=== PATIENT | female | born 1965 | race Caucasian/White ===

== ENCOUNTER 2017-03-09 15:18 | Emergency (ER) | payer OTHER ==
--- NOTE | 2017-03-09 15:25 | PDOC ---
History of Present Illness - General History Source: Patient Exam Limitations: No Limitations - History of Present Illness Initial Comments: 03/09/17 16:14 Patient is a 51 year old female with a significant past medical history of who presents to the ED with complaints of Headache beginning this week. Patient reports head pressure starting this week and increasing in intensity over time. She reports intermittent episodes of blurred vision secondary to head pressure. She states constant thirst for the last 2 days. She reports being unable to fall asleep due to head pressure. Patient reports episodes of exhaustion and weakness secondary to head pressure. She reports visiting the ED weeks ago for anxiety. Citlaly Chest pain, SOB. Denies fever, vomiting. Denies any other symptoms. Allergies Clarithromycin (From Biaxin), Vertisol. Social history : No smoking. No alcohol. No illicit drugs. Surgical history: No surgical history. PMD: None <Pierce Morse - Last Filed: 03/09/17 16:14> <Destinee James - Last Filed: 03/09/17 16:54> - General Chief Complaint: Headache Stated Complaint: weak,headache Time Seen by Provider: 03/09/17 15:24 Past History <Pierce Morse - Last Filed: 03/09/17 16:14> <Destinee James - Last Filed: 03/09/17 16:54> - Past Medical History Allergies/Adverse Reactions: Allergies Allergy/AdvReac Type Severity Reaction Status Date / Time clarithromycin [From Biaxin] Allergy Verified 03/09/17 15:21 vertisol Allergy Uncoded 03/09/17 15:36 Home Medications: Ambulatory Orders NK [No Known Home Medication] 03/09/17 Review of Systems - Review of Systems Able to Perform ROS?: Yes Comments:: 03/09/17 16:14 GENERAL/CONSTITUTIONAL: No fever or chills. No weakness. HEAD, EYES, EARS, NOSE AND THROAT: +Headpressure. +Blurred vision. No ear pain or discharge. No sore throat. CARDIOVASCULAR: No chest pain or shortness of breath. RESPIRATORY: No cough, wheezing, or hemoptysis. GASTROINTESTINAL: No nausea, vomiting, diarrhea or constipation. GENITOURINARY: No dysuria, frequency, or change in urination. MUSCULOSKELETAL: No joint or muscle swelling or pain. No neck or back pain. SKIN: No rash NEUROLOGIC: No headache, vertigo, loss of consciousness, or change in strength/ sensation. ENDOCRINE: No increased thirst. No abnormal weight change. HEMATOLOGIC/LYMPHATIC: No anemia, easy bleeding, or history of blood clots. ALLERGIC/IMMUNOLOGIC: No hives or skin allergy. All Other Systems: Reviewed and Negative <Pierce Morse - Last Filed: 03/09/17 16:14> *Physical Exam - Vital Signs Last Vital Signs Temp Pulse Resp BP Pulse Ox 98.4 F 84 20 98/60 98 03/09/17 15:18 03/09/17 15:18 03/09/17 15:18 03/09/17 15:18 03/09/17 15:18 - Physical Exam Comments: 03/09/17 16:16 GENERAL: Awake, alert, and fully oriented, in no acute distress HEAD: No signs of trauma EYES: Normal inspection. PERRLA, EOMI, sclera anicteric, conjunctiva clear ENT: Neck supple. Auricles normal inspection, hearing grossly normal, nares patent, oropharynx clear without exudates. Moist mucosa NECK: Normal ROM, supple, no lymphadenopathy, JVD, or masses LUNGS: Breath sounds equal, clear to auscultation bilaterally. No wheezes, and no crackles HEART: Regular rate and rhythm, normal S1 and S2, no murmurs, rubs or gallops ABDOMEN: Soft, nontender, normoactive bowel sounds. No guarding, no rebound. No masses EXTREMITIES: Normal range of motion, no edema. No clubbing or cyanosis. No cords, erythema, or tenderness NEUROLOGICAL: Cranial nerves II through XII grossly intact. Normal speech, normal gait SKIN: Warm, Dry, normal turgor, no rashes or lesions noted. <Pierce Morse - Last Filed: 03/09/17 16:14> ED Treatment Course - LABORATORY CBC & Chemistry Diagram: 03/09/17 16:04 03/09/17 16:04 <Pierce Morse - Last Filed: 03/09/17 16:14> - LABORATORY CBC & Chemistry Diagram: 03/09/17 16:04 03/09/17 16:04 <Destinee James - Last Filed: 03/09/17 16:54> Medical Decision Making - Medical Decision Making 03/09/17 16:42 Pt presents to the ED complaining of a one week history of insomnia, generalized anxiety and gradual onset band like head pressure. Also complaining of increased thirst. Patient has seen her primary care doctor for the same complaints, and was given remeron, which she has not been taking. Well appearing in the ED. No signs or symptoms that are suspicious for subarachnoid. <Destinee James - Last Filed: 03/09/17 16:54> *DC/Admit/Observation/Transfer - Attestations Scribe Attestion: 03/09/17 16:17 Documentation prepared by Pierce Morse, acting as medical record consultant for Destinee James MD. <Pierce Morse - Last Filed: 03/09/17 16:14> - Discharge Dispostion Admit: No <Destinee James - Last Filed: 03/09/17 16:54> Diagnosis at time of Disposition: Headache Qualifiers: Headache type: tension-type Headache chronicity pattern: acute headache Intractability: not intractable Qualified Code(s): G44.209 - Tension-type headache, unspecified, not intractable - Discharge Dispostion Disposition: HOME Condition at time of disposition: Good - Patient Instructions Printed Discharge Instructions: DI for Headache Additional Instructions: return to the ED for severe headache, confusion, severe nausea and vomiting, headache with fever. Follow up with your doctor within one week.
[2017-03-09] MEDS ORDERED: SODIUM CHLORIDE 0.9% 1000 ML INFUS.BAG IV ONE (15:43)
[2017-03-09 15:51] VITALS: BP 98/60; PULSE 84; TEMP 98.4; BMI 18.4
[2017-03-09 16:20] LABS: BASOPHIL 3.4 % (0-2.0); EOSINOPHIL 0.7 % (0-4.5); MCH 33.1 pg (25.7-33.7); MEAN CELL VOLUME 97.2 fl (80-96); MEAN PLT VOLUME 8.4 fl (7.5-11.1); NEUTROPHILS 65.1 % (42.8-82.8); PLATELET COUNT 260 K/MM3 (134-434); RDW 13.9 % (11.6-15.6)
[2017-03-09 16:28] LABS: ALBUMIN 4.3 g/dl (3.5-5.0); ALK PHOS 47 U/L (32-92); ANION GAP 9 (8-16); BILIRUBIN,TOTAL 0.4 mg/dl (0.2-1.0); CALCIUM 9.7 mg/dl (8.4-10.2); CO2 27 mmol/L (22-28); CREATININE 0.5 mg/dl (0.6-1.3); GLUCOSE,RANDOM 108 mg/dl (74-106); SGOT/AST 24 U/L (10-42); SGPT/ALT 17 U/L (10-40); TOT PROT 7.2 g/dl (6.4-8.3)
[2017-03-09] MEDS ORDERED: IBUPROFEN 400 MG TABLET (FP) PO ONE ×2 (16:40→16:53)
== END 2017-03-09 17:10 | disposition home or self-care (01) ==
LOC: FER 15:18
PROC: 3E0337Z Introduction of Electrolytic and Water Balance Substance into Peripheral Vein, Percutaneous Approach (ICD-10-PCS; principal; 2017-03-09)
DX: G44.209 Tension-type headache, unspecified, not intractable (principal)
CPT/HCPCS: 36415; 80053; 85025; 99281-25